=== PATIENT | female | born 1985 | race African-American/Black ===

== ENCOUNTER 2018-02-14 18:01 | Emergency (ER) | payer SELFPAY ==
[~2018-02-14] VITALS: Ht 152.4 cm; Wt 86.2 kg
[2018-02-14] MEDS ORDERED: PREDNISONE20 MG PO (22:28)
[2018-02-14] MEDS ORDERED: PROVENTIL HFA6.7 GM IH (22:29)
[2018-02-14 22:53] VITALS: BP 132/67
== END 2018-02-14 22:54 | disposition home or self-care (01) ==
LOC: EME 18:01
DX: J45.909 Unspecified asthma, uncomplicated (principal); R05 Cough; R11.2 Nausea with vomiting, unspecified; R19.7 Diarrhea, unspecified
CPT/HCPCS: 71046; 94644; 99281; 99285; J7512